=== PATIENT | male | born 1995 | race African-American/Black ===

== ENCOUNTER 2017-02-21 13:38 | Emergency (ER) | payer BC, OTHER ==
[~2017-02-21] VITALS: Ht 172.7 cm; Wt 75.0 kg
[~2017-02-21 13:38] MED LIST: CEPH500C3 PO; HYDR-3534 PO
[2017-02-21 13:40] VITALS: BP 130/61; PULSE 102; RESP 15; TEMP 99.8; O2SAT 96
[2017-02-21] MEDS ORDERED: IBUP800T23 PO (13:56)
[2017-02-21] MEDS ORDERED: MAGICPED SWISH-SPIT (13:56)
[2017-02-21] MEDS ORDERED: AMOX500C PO (13:56)
--- NOTE | 2017-02-21 13:59 | PD ---
HPI Chief Complaint: ENT Complaint Time Seen by Provider: 13:55 Travel History International Travel<30 days: No Contact w/Intl Traveler<30days: No Traveled to known affect area: No History of Present Illness HPI 21-year-old male presents to the emergency Department with complaint of sore throat 3 days. Denies lump in throat, difficulty swallowing, unusual drooling. Reports painful swallowing. Denies ear pain or cough. Denies nasal congestion. Cannot reported MAXIMUM TEMPERATURE because he has not taken his temperature. Reports chills and night sweats. Denies shortness of breath. Reports headache. Denies nausea, vomiting, abdominal pain. No known allergies. No other medical complaints. No other modifying factors or associated signs and symptoms. PFSH Past Medical History Genitourinary: No Musculoskeletal: No Neurologic: No Reproductive: No Social History Alcohol Use: Yes Tobacco Use: No Substance Use: No Allergies-Medications (Allergen,Severity, Reaction): Coded Allergies: No Known Allergies (Unverified , 02/21/17) Reported Meds & Prescriptions Reported Meds & Active Scripts Active Review of Systems Except as stated in HPI: all other systems reviewed are Neg Physical Exam Narrative GENERAL: Well-nourished, well-developed male patient, in no acute distress; low-grade fever, nontoxic-appearing SKIN: Warm and dry. No rash. HEAD: Atraumatic. Normocephalic. EYES: Pupils equal and round at 3 mm with brisk reaction. No scleral icterus. No injection or drainage. PERRLA. ENT: Mucosa pink and dry. Pharynx with 2+ tonsils; with erythema, exudate, and edema. No Uvular edema. No uvular, palatal, or tonsillar deviation. Airway patent. Voice is hoarse. EARS: Bilateral pinnae and external canals appear within normal limits. Bilateral tympanic membranes without erythema, dullness or perforation.. NECK: Trachea midline. Anterior cervical lymphadenopathy and tenderness. CARDIOVASCULAR: Regular rate and rhythm. No murmur appreciated. RESPIRATORY: No accessory muscle use. Clear to auscultation. Breath sounds equal bilaterally. GASTROINTESTINAL: Abdomen soft, non-tender, nondistended. Hepatic and splenic margins not palpable. Bowel sounds are active 4 quadrants. MUSCULOSKELETAL: No obvious deformities. No clubbing. No cyanosis. No edema. NEUROLOGICAL: Awake and alert. Oriented 3. No obvious cranial nerve deficits. Motor grossly within normal limits. Normal speech. Moves all extremities. PSYCHIATRIC: Appropriate mood and affect; insight and judgment normal. Data Data Last Documented VS Vital Signs Date Time Temp Pulse Resp B/P Pulse Ox O2 Delivery O2 Flow Rate FiO2 02/21/17 13:40 99.8 102 15 130/61 96 MDM Medical Decision Making Medical Screen Exam Complete: Yes Emergency Medical Condition: Yes Medical Record Reviewed: Yes Differential Diagnosis Exudative pharyngitis, strep pharyngitis, less likely peritonsillar abscess Narrative Course 21-year-old male physical exam consistent with exudative pharyngitis. Patient with low-grade fever and nontoxic-appearing. Cannot report a MAXIMUM TEMPERATURE but reports chills and night sweats. Denies lump in throat, difficulty swallowing, unusual drooling. Amoxicillin, ibuprofen, Magic mouthwash prescribed for home. Patient verbalizes understanding and agreement with treatment plan. Patient is medically cleared and stable for discharge. Discussed reasons to return to the emergency department. Instructed patient to follow up with primary care provider. Patient agrees with treatment plan. The patients vital signs are stable and the patient is stable for outpatient follow- up and treatment. Patient discharged home, stable and in no acute distress. Diagnosis Primary Impression: Exudative pharyngitis Referrals: Primary Care Physician Patient Instructions: General Instructions, Pharyngitis (ED) Departure Forms: Tests/Procedures, Work Release Enter return to work date: Feb 23, 2017 Additional Instructions: Take Antibiotics as prescribed and complete full course of antibiotics Get plenty of sleep/rest Rest your voice Drink plenty of fluids to prevent dehydration Use warm saltwater gargles to soothe throat pain Use an air humidifier/turn off ceiling fans Use throat lozenges as needed for sore throat Use ibuprofen or acetaminophen as needed to relieve pain and fever Follow-up with your primary care provider within 2-4 days Return immediately to the emergency department with worsening of symptoms Med/Other Pt SpecificInfo: Prescription(s) given Disposition: 01 DISCHARGE HOME Condition: Stable Rosa Bernarod Feb 21, 2017 13:59
== END 2017-02-21 14:32 | disposition home or self-care (01) ==
LOC: NEPK 13:38
DX: J02.9 Acute pharyngitis, unspecified (principal); R51 Headache
CPT/HCPCS: 99283